=== PATIENT | male | born 1980 | race African-American/Black ===

== ENCOUNTER 2023-05-19 12:03 | Inpatient (IN) | payer SELFPAY ==
[2023-05-19 13:17] LABS: Absolute Lymphocytes (CBC) 2.3 K/uL (0.7-4.9); Lymphocytes % 43.9 % (15.3-44.8); MCV 91.6 fL (80-100); MPV 7.8 fL (7.6-11.3); Platelets 321 thou/uL (152-406); RBC Red Blood Cell Count 4.59 M/uL (4.33-5.43)
[2023-05-19 13:28] LABS: Protime INR 1.11
[2023-05-19] MEDS ORDERED: THIAMINE 200 MG/2 ML INJ ONE (13:42)
[2023-05-19] MEDS ORDERED: NA CHLORIDE 0.9% 1,000 ML ONE (13:43)
[2023-05-19 13:50] LABS: AST/SGOT 10 U/L (15-37); Alkaline Phosphatase 74 U/L (45-117); Glomerular Filtration Rate 88 ml/min (=/>90); Potassium 4.4 mEq/L (3.5-5.1); Protein, Total 7.1 g/dL (6.4-8.2); Sodium Level 139 mEq/L (136-145)
[2023-05-19 13:52] LABS: Troponin High Sensitivity 104.8 pg/mL (<58.9)
[2023-05-19 13:53] LABS: Specific Gravity 1.013 (1.005-1.030); Urine Bacteria None Seen /HPF (<20); Urine Bilirubin NEGATIVE (Negative); Urine Blood Negative (Negative); Urine Clarity Clear (Clear); Urine Color Light-Yellow (Yellow); Urine Glucose NEGATIVE (Negative); Urine Protein NEGATIVE (Negative); Urine RBC None Seen /HPF (None Seen); Urine Urobilinogen Normal (Normal)
[2023-05-19 13:55] LABS: ALT/SGPT 12 U/L (16-61); Albumin 3.3 g/dL (3.4-5.0); BUN Blood Urea Nitrogen 12 mg/dL (7-18); Bicarbonate 28 mEq/L (21-32); Bilirubin Direct 0.1 mg/dL (0-0.2); Bilirubin Indirect, Calculated 0.2 mg/dL (0.2-0.8); Bilirubin Total 0.3 mg/dL (0.2-1.0); Glucose Level 81 mg/dL (74-106); Lipase 78 U/L (13-75)
--- NOTE | 2023-05-19 13:55 | ER ---
Nurse's Notes [facility] Name: Nishi Haro Age: 43 yrs Sex: Male : 1980 Arrival Date: 05/19/2023 Time: 12:03 Bed 8 Private MD: Diagnosis: Weakness;Dizziness and giddiness;Bradycardia, unspecified;Abnormal levels of other serum enzymes-ELEVATED TROPONIN Presentation: 05/19 12:23 Chief complaint: Patient states: has been at [facility] for rehab, last used meth over iw a week ago , has been feeling light headed , fatigued, shaky, weak. They don't feed us in there, I'm not getting nourishment. Coronavirus screen: At this time, the client does not indicate any symptoms associated with coronavirus-19. Ebola Screen: Patient negative for fever greater than or equal to 101.5 degrees Fahrenheit, and additional compatible Ebola Virus Disease symptoms Patient denies exposure to infectious person. Patient denies travel to an Ebola-affected area in the 21 days before illness onset. No symptoms or risks identified at this time. 12:23 Method Of Arrival: Ambulatory iw 12:23 Acuity: PARDEEP 3 iw 14:16 Initial Sepsis Screen: Does the patient meet any 2 criteria? No. Patient's initial iw sepsis screen is negative. Does the patient have a suspected source of infection? No. Patient's initial sepsis screen is negative. Risk Assessment: Do you want to hurt yourself or someone else? Patient reports no desire to harm self or others. Onset of symptoms was May 19, 2023. Historical: - Allergies: 12:26 No Known Allergies; iw - Home Meds: 12:26 None [Active]; iw - PMHx: 12:26 None; iw - PSHx: 12:26 None; iw - Immunization history:: Adult Immunizations up to date. - Social history:: Patient uses street drugs, Methamphetamine (Meth). - Family history:: not pertinent. Screenin:38 [facility] ED Fall Risk Assessment (Adult) Score/Fall Risk Level 0 - 2 = Low Risk. Abuse iw screen: Denies threats or abuse. Denies injuries from another. Nutritional screening: No deficits noted. Tuberculosis screening: No symptoms or risk factors identified. Assessment: 12:37 General: Appears in no apparent distress. Behavior is calm, cooperative. Neuro: Level iw of Consciousness is awake, alert, obeys commands. Cardiovascular: Patient's skin is warm and dry. Respiratory: Airway is patent Respiratory effort is even, unlabored, Respiratory pattern is regular, symmetrical. GI: Abdomen is flat, non-distended. Derm: Skin is intact, is healthy with good turgor. Musculoskeletal: Range of motion: intact in all extremities. 15:01 Reassessment: No changes from previously documented assessment. Patient and/or family tl4 updated on plan of care and expected duration. Pain level reassessed. Patient is alert, oriented x 3, equal unlabored respirations, skin warm/dry/pink. Patient denies pain at this time. Pain: Denies pain. 19:26 Reassessment: Patient appears in no apparent distress at this time. Patient and/or km8 family updated on plan of care and expected duration. Pain level reassessed. pt been on phone at nurses station since start of shift at 1900;. 05/21 07:30 Reassessment: Patient appears in no apparent distress at this time. Patient and/or db family updated on plan of care and expected duration. Pain level reassessed. Patient is alert, oriented x 3, equal unlabored respirations, skin warm/dry/pink. SEE [employer] FOR CONTINUED DOCUMENTATION. General: Appears in no apparent distress. comfortable, Behavior is calm, cooperative. Neuro: Level of Consciousness is awake, alert, obeys commands, Oriented to person, place, time, situation. Vital Signs: 05/19 12:26 BP 130 / 77; Pulse 64; Resp 16; Temp 98.1; Pulse Ox 100% on R/A; iw 15:02 BP 133 / 77; Pulse 69; Resp 17; Pulse Ox 99% on R/A; tl4 05/21 07:30 BP 116 / 74; Pulse 68; Resp 16; Temp 98; Pulse Ox 98% ; db ED Course: 05/19 12:04 Patient arrived in ED. aa5 12:14 Ramana Boyer MD is Attending Physician. nohemi 12:25 Triage completed. iw 12:37 Nuris Burton, RN is Primary Nurse. iw 12:38 Patient has correct armband on for positive identification. iw 12:40 Inserted saline lock: 20 gauge in right antecubital area, using aseptic technique. iw 13:03 Provided Education on: . 13:09 Initial lab(s) drawn, by ok, sent to lab. 5 14:08 Girma Ortiz MD is Hospitalizing Provider. [facility] 14:36 Chest Single View XRAY In Process Unspecified. EDMS 14:58 DD Sent. tl4 14:58 BNP Sent. tl4 15:02 Diet: Patient given a regular meal tray. Tolerated well given supplemental peanut tl4 butter and jelly sandwich and milk.. 15:03 Arm band placed on Patient placed in an exam room, on a stretcher. tl4 15:03 No provider procedures requiring assistance completed. tl4 20:00 Patient admitted, IV remains in place. [facility] 05/20 20:47 Primary Nurse role handed off by Nuris Burton RN [facility] 20:47 Dina Andrade, SANDY is Primary Nurse. 8 Administered Medications: 05/19 13:26 Drug: Banana Bag - (Multivitamin IV 1 amp, NS 0.9% IV 1000 ml, Thiamine IV 100 mg, iw foLIC Acid IVPB 1 mg) IV at 500 ml/hr once Route: IV; Rate: 500 ml/hr; Site: right antecubital; 13:52 Drug: NS 0.9% IV 1000 ml IV at 1 bolus Per protocol; 1000 mL bolus Route: IV; Rate: 1 iw bolus; Site: right antecubital; 13:52 Drug: Thiamine IV 100 mg IV at bolus once Route: IV; Rate: bolus; Site: right iw antecubital; 14:27 Drug: Aspirin PO Chewable Tablet 324 mg PO once; 81 mg tablets x 4 Route: PO; tl4 14:46 Follow up: Response: No adverse reaction tl4 Medication: 12:38 VIS not applicable for this client. Outcome: 13:54 Discharge ordered by . [facility] 14:09 Decision to Hospitalize by Provider. [facility] 20:00 Admitted to ER Hold. Please see [facility] for further documentation. km8 20:00 Condition: good km8 20:00 Instructed on the need for admit, Demonstrated understanding of instructions, 05/21 15:25 Patient left the ED. db Signatures: Dispatcher [employer] Ramana Roger MD MD cha Williams, Irene, SANDY DELGADO Claudine Brennan RN SANDY Saundra Sanchez RN RN db [place], Mor[facility] Dina Andrade, RN RN km8 Aden Scott RN RN tl4 Corrections: (The following items were deleted from the chart) 05/19 14:17 12:23 Chief complaint: Patient states: has been at [facility] for rehab, last used iw meth over a week ago , has been feeling light headed , fatigued, shaky, weak. They don't fees us in there, I'm not getting nourishment iw 05/21 07:43 07:30 Reassessment: Patient appears in no apparent distress at this time. Patient db and/or family updated on plan of care and expected duration. Pain level reassessed. Patient is alert, oriented x 3, equal unlabored respirations, skin warm/dry/pink. db
--- NOTE | 2023-05-19 13:55 | EDPHYS ---
Physician Documentation [facility] Name: Nishi Haro Age: 43 yrs Sex: Male : 1980 Arrival Date: 05/19/2023 Time: 12:03 Bed 8 Private MD: ED Physician Ramana Boyer HPI: 05/19 13:41 This 43 yrs old Black Male presents to ER via Ambulatory with complaints of Drug nohemi withdraw. 13:41 in rehab, feels weak. Onset: The symptoms/episode began/occurred 3 day(s) ago. Severity nohemi of symptoms: At their worst the symptoms were mild in the emergency department the symptoms are unchanged. The patient has experienced similar episodes in the past, several times. Historical: - Allergies: 12:26 No Known Allergies; iw - Home Meds: 12:26 None [Active]; iw - PMHx: 12:26 None; iw - PSHx: 12:26 None; iw - Immunization history:: Adult Immunizations up to date. - Social history:: Patient uses street drugs, Methamphetamine (Meth). - Family history:: not pertinent. ROS: 13:41 Constitutional: Negative for fever, chills, and weight loss, Eyes: Negative for injury, nohemi pain, redness, and discharge, ENT: Negative for injury, pain, and discharge, Neck: Negative for injury, pain, and swelling, Cardiovascular: Negative for chest pain, palpitations, and edema, Respiratory: Negative for shortness of breath, cough, wheezing, and pleuritic chest pain, Abdomen/GI: Negative for abdominal pain, nausea, vomiting, diarrhea, and constipation, Back: Negative for injury and pain, : Negative for injury, bleeding, discharge, and swelling, MS/Extremity: Negative for injury and deformity, Skin: Negative for injury, rash, and discoloration, Psych: Negative for depression, anxiety, suicide ideation, homicidal ideation, and hallucinations, Allergy/Immunology: Negative for hives, rash, and allergies, Endocrine: Negative for neck swelling, polydipsia, polyuria, polyphagia, and marked weight changes, Hematologic/Lymphatic: Negative for swollen nodes, abnormal bleeding, and unusual bruising, 13:41 Neuro: Positive for weakness, Exam: 13:41 Constitutional: This is a well developed, well nourished patient who is awake, alert, nohemi and in no acute distress. Head/Face: Normocephalic, atraumatic. Eyes: Pupils equal round and reactive to light, extra-ocular motions intact. Lids and lashes normal. Conjunctiva and sclera are non-icteric and not injected. Cornea within normal limits. Periorbital areas with no swelling, redness, or edema. ENT: Nares patent. No nasal discharge, no septal abnormalities noted. Tympanic membranes are normal and external auditory canals are clear. Oropharynx with no redness, swelling, or masses, exudates, or evidence of obstruction, uvula midline. Mucous membranes moist. Neck: Trachea midline, no thyromegaly or masses palpated, and no cervical lymphadenopathy. Supple, full range of motion without nuchal rigidity, or vertebral point tenderness. No Meningismus. Chest/axilla: Normal chest wall appearance and motion. Nontender with no deformity. No lesions are appreciated. Cardiovascular: Regular rate and rhythm with a normal S1 and S2. No gallops, murmurs, or rubs. Normal PMI, no JVD. No pulse deficits. Respiratory: Lungs have equal breath sounds bilaterally, clear to auscultation and percussion. No rales, rhonchi or wheezes noted. No increased work of breathing, no retractions or nasal flaring. Abdomen/GI: Soft, non-tender, with normal bowel sounds. No distension or tympany. No guarding or rebound. No evidence of tenderness throughout. Back: No spinal tenderness. No costovertebral tenderness. Full range of motion. Male : Normal genitalia with no discharge or lesions. Skin: Warm, dry with normal turgor. Normal color with no rashes, no lesions, and no evidence of cellulitis. MS/ Extremity: Pulses equal, no cyanosis. Neurovascular intact. Full, normal range of motion. Psych: Awake, alert, with orientation to person, place and time. Behavior, mood, and affect are within normal limits. 13:41 Neuro: Orientation: is normal, appropriate for stated age, no acute changes, Mentation: is normal, appropriate for stated age, no acute changes, Memory: is normal, appropriate for stated age, no acute changes, Cranial nerves: grossly normal, is grossly normal based on the patient's age, no acute changes, Cerebellar function: is grossly normal, is grossly normal based on the patient's age, no acute changes, Motor: is normal, is grossly normal based on the patient's age, no acute changes, moves all fours, strength is normal, strength is 5/5 in all extremities, Sensation: is normal, no obvious gross deficits, appropriate no acute changes, Gait: not applicable is steady, at a normal pace, without difficulty, Deep tendon reflexes are 2+ (normal) in the bilateral brachioradialis, bicep, tricep and patellar and Achilles tendons, Babinski testing is normal, seizure activity, is not displayed by the patient, 13:56 ECG was reviewed by the Attending Physician. [facility] Vital Signs: 12:26 BP 130 / 77; Pulse 64; Resp 16; Temp 98.1; Pulse Ox 100% on R/A; iw 15:02 BP 133 / 77; Pulse 69; Resp 17; Pulse Ox 99% on R/A; tl4 05/21 07:30 BP 116 / 74; Pulse 68; Resp 16; Temp 98; Pulse Ox 98% ; db MDM: 05/19 12:14 Patient medically screened. [facility] 13:45 Differential Diagnosis altered mental status. Data reviewed: vital signs, nurses notes, [facility] lab test result(s), EKG. Consideration of Admission/Observation Escalation of care including admission/observation considered. I considered the following discharge prescriptions or medication management in the emergency department Medications were administered in the Emergency Department. See MAR. Independent interpretation of the following test(s) in the Emergency Department EKG: See my EKG interpretation above. Test considered but Not performed: CT: no ct head. Care significantly affected by the following chronic conditions: none, drugs, 3 time in REHAB. Counseling: I had a detailed discussion with the patient and/or guardian regarding the historical points, exam findings, and any diagnostic results supporting the discharge/admit diagnosis, lab results, the need for outpatient follow up, for definitive care, a family practitioner. 05/19 12:15 Order name: Acetaminophen; Complete Time: 14:25 [facility] 05/19 12:15 Order name: Basic Metabolic Panel; Complete Time: 14:25 [facility] 05/19 12:15 Order name: CBC with Diff; Complete Time: 13:29 [facility] 05/19 12:15 Order name: ETOH Level; Complete Time: 13:40 [facility] 05/19 12:15 Order name: Hepatic Function; Complete Time: 14:25 [facility] 05/19 12:15 Order name: PT-INR; Complete Time: 13:29 [facility] 05/19 12:15 Order name: Ptt, Activated; Complete Time: 13:29 nohemi 05/19 12:15 Order name: Salicylate; Complete Time: 13:56 [facility] 05/19 12:15 Order name: Urinalysis w/ reflexes; Complete Time: 13:56 nohemi 05/19 12:15 Order name: Urine Drug Screen; Complete Time: 14:25 [facility] 05/19 12:15 Order name: Lipase; Complete Time: 14:25 [facility] 05/19 12:15 Order name: Troponin High Sensitivity; Complete Time: 14:25 [facility] 05/19 13:54 Order name: BNP [facility] 05/19 14:37 Order name: DD aa5 05/19 22:38 Order name: Creatine Phosphokinase EDMN 05/19 22:38 Order name: Troponin High Sensitivity EDMN 05/20 08:25 Order name: CBC with Automated Diff EDMS 05/20 08:43 Order name: Basic Metabolic Panel EDMN 05/20 08:43 Order name: Lipid Profile EDMN 05/20 08:47 Order name: Troponin High Sensitivity EDMN 05/20 12:48 Order name: Troponin High Sensitivity EDMS 05/21 04:43 Order name: CBC with Automated Diff EDMS 05/21 05:00 Order name: Basic Metabolic Panel EDMN 05/21 05:00 Order name: Troponin High Sensitivity [facility] 05/19 13:54 Order name: Chest Single View XRAY; Complete Time: 14:48 [facility] 05/19 12:15 Order name: EKG; Complete Time: 12:16 [facility] 05/19 12:15 Order name: EKG - Nurse/Tech; Complete Time: 12:39 [facility] 05/19 12:15 Order name: IV Saline Lock; Complete Time: 13:09 [facility] 05/19 12:15 Order name: Labs collected and sent; Complete Time: 13:09 [facility] EC:56 Rate is 51 beats/min. Rhythm is regular. QRS [place] is Normal. AL interval is normal. QRS nohemi interval is normal. QT interval is normal. No Q waves. T waves are Normal. No ST changes noted. Clinical impression: Sinus bradycardia and No evidence of ischemia. Interpreted by me. Reviewed by me. Administered Medications: 13:26 Drug: Banana Bag - (Multivitamin IV 1 amp, NS 0.9% IV 1000 ml, Thiamine IV 100 mg, iw foLIC Acid IVPB 1 mg) IV at 500 ml/hr once Route: IV; Rate: 500 ml/hr; Site: right antecubital; 13:52 Drug: NS 0.9% IV 1000 ml IV at 1 bolus Per protocol; 1000 mL bolus Route: IV; Rate: 1 iw bolus; Site: right antecubital; 13:52 Drug: Thiamine IV 100 mg IV at bolus once Route: IV; Rate: bolus; Site: right iw antecubital; 14:27 Drug: Aspirin PO Chewable Tablet 324 mg PO once; 81 mg tablets x 4 Route: PO; tl4 14:46 Follow up: Response: No adverse reaction tl4 Disposition Summary: 05/19/23 14:09 Hospitalization Ordered Notes: Hospitalization Status: Observation nohemi Provider: Girma Ortiz cha Condition: Fair(05/19/23 14:09) nohemi Problem: new(05/19/23 14:09) nohemi Symptoms: have improved(05/19/23 14:09) nohemi Bed/Room Type: Standard nohemi Location: Telemetry/MedSurg (observation)(05/21/23 15:17) bd Room Assignment: 406(05/21/23 15:19) bd Diagnosis - Weakness(05/19/23 14:09) nohemi - Dizziness and giddiness nohemi - Bradycardia, unspecified nohemi - Abnormal levels of other serum enzymes - ELEVATED TROPONIN nohemi Forms: - Medication Reconciliation Form nohemi - SBAR form nohemi - Leadership Thank You Letter nohemi Signatures: Dispatcher [employer] EDMS Reanna Jackson Corey, MD MD cha Williams, Irene RN SANDY iw Matt John, GARMENT FORM ASSEMBLER-C GARMENT FORM ASSEMBLER-Cla1 Christy Kelsey RN RN Celio Girard RN RN ja1 Lauryn Gray Lynsay, RN RN ll1 Aden Scott RN RN tl4 Corrections: (The following items were deleted from the chart) 13:55 13:54 Home nohemi nohemi 13:55 13:54 new nohemi nohemi 13:55 13:54 have improved nohemi nohemi 13:55 13:54 Stable nohemi nohemi 13:55 13:54 Weakness nohemi nohemi 13:55 13:54 Abuse of other non-psychoactive substances nohemi nohemi 15:50 14:09 Telemetry/MedSurg (observation) nohemi hb 15:50 14:09 nohemi hb 23:17 12:15 Suicide Screening ([place]) ordered. nohemi jb4 05/20 10:41 02 15:50 [facility] ER HOLD hb eb 05/20 10:41 0217 15:50 ERHOLD- hb eb 05/20 10:47 10:41 Telemetry/MedSurg (observation) eb eb 10:47 10:41 412 eb eb 05/21 11:26 02 10:47 [facility] ER HOLD eb ja1 05/21 11:26 0218 10:47 ERHOLD- eb ja1 05/21 13:59 11:26 Telemetry/MedSurg (observation) ja1 ll1 13:59 11:26 405 ja1 ll1 15:17 13:59 [facility] ER HOLD ll1 bd 15:17 13:59 ERHOLD- ll1 bd 15:19 15:17 405 bd bd
[2023-05-19 14:06] LABS: Barbiturates NEGATIVE (NEGATIVE); Benzodiazepines NEGATIVE (NEGATIVE); Cocaine NEGATIVE (NEGATIVE); METHAMPHETAM POSITIVE (NEGATIVE); Methadone NEGATIVE (NEGATIVE); Opiates NEGATIVE (NEGATIVE); Phencyclidine NEGATIVE (NEGATIVE); THC Cannibis NEGATIVE (NEGATIVE)
[2023-05-19] MEDS ORDERED: ASPIRIN 81 MG CHEWABLE TABLET ONE (14:22)
--- NOTE | 2023-05-19 14:40 | RAD REPORT ---
EXAM DESCRIPTION: RAD - Chest Single View - 05/19/2023 2:34 pm CLINICAL HISTORY: CHEST PAIN COMPARISON: No comparisons FINDINGS: Lines: None. Lungs: No evidence of edema or pneumonia. Pleural: No significant pleural effusions or pneumothorax. Cardiac: The heart size is within normal limits. Mediastinum: Within normal limits. Bones: No acute fractures. Other: None IMPRESSION: No acute cardiopulmonary disease.
--- NOTE | 2023-05-19 15:08 | P.HP ---
Certification for Inpatient Patient admitted to: Observation With expected LOS: <2 Midnights Patient will require the following post-hospital care: None Practitioner: I am a practitioner with admitting privileges, knowledge of patient current condition, hospital course, and medical plan of care. Services: Services provided to patient in accordance with Admission requirements found in Title 42 Section 412.3 of the Code of Federal Regulations Patient History Date of Service: 05/19/23 Reason for admission: Chest pain History of Present Illness: 43-year-old male with history of substance abuse presents emergency department chief complaint of generalized weakness, lightheadedness. He is currently at a rehab facility for methamphetamine use, he reports he last used methamphetamines approximate 3 to 4 days ago and has been feeling unwell while in rehab. He denies any other medical history. He was evaluated in the emergency department his labs are significant for initial hesitancy troponin of 104.8 UDS positive for amphetamines. Patient does admit to some cramping sensation in his left chest wall intermittently the past few days as well as some intermittent shortness of breath the past few weeks with exertion. D-dimer ordered and pending. ED prior wishes to admit under observation for ACS rule out - Past Medical/Surgical History -: Substance abuse -: None Psychosocial/ Personal History: Currently staying at [facility] rehab facility - Family History Family History: Reviewed- Non-Contributory - Social History Smoking Status: Current every day smoker Alcohol use: No CD- Drugs: Yes Caffeine use: Yes Place of Residence: Home Review of Systems 10-point ROS is otherwise unremarkable Respiratory: Shortness of Breath Cardiovascular: Chest Pain Physical Examination - Physical Exam General: Alert, In no apparent distress, Oriented x3 HEENT: Atraumatic, PERRLA, Mucous membr. moist/pink Neck: Supple, 2+ carotid pulse no bruit, No LAD Respiratory: Clear to auscultation bilaterally, Normal air movement Cardiovascular: Regular rate/rhythm, Normal S1 S2 Gastrointestinal: Normal bowel sounds, No tenderness Musculoskeletal: No tenderness Integumentary: No rashes Neurological: Normal speech, Normal strength at 5/5 x4 extr, Normal tone, Normal affect - Studies Laboratory Data (last 24 hrs) 05/19/23 05/19/23 05/19/23 13:06 13:06 13:06 WBC 5.30 Hgb 14.4 Hct 42.0 Plt Count 321 PT 12.2 INR 1.11 APTT 37.2 H Sodium 139 Potassium 4.4 BUN 12 Creatinine 1.07 Glucose 81 Total Bilirubin 0.3 AST 10 L ALT 12 L Alkaline Phosphatase 74 Lipase 78 H Assessment and Plan - Plan Assessment: Chest pain with elevated troponin Amphetamine use disorder Plan: Chest pain with elevated troponin Mildly elevated troponin, will trend and monitor on tele Cardiology consult, daily aspirin Will obtain D-dimer Troponin elevation possibly secondary to amphetamine use Amphetamine use disorder Counseled on need for cessation Plans on quitting, currently residing at rehab facility Last used 3 to 4 days ago DVT PPX: Lovenox Code status: Full Discharge Plan: Home Plan to discharge in: 24 Hours - Advance Directives Does patient have a Living Will: No Does patient have a Durable POA for Healthcare: No - Code Status/Comfort Care Code Status Assessed: Yes (Full code) Critical Care: No Time Spent Managing Pts Care (In Minutes): 55
[2023-05-19] MEDS: FOLIC ACID 1 MG, MULTIVITAMINS INJ 10 ML, THIAMINE HCL 100 MG in NA CHLORIDE 0.9% 1,000 ML IV ONE (19:00)
[2023-05-19] MEDS ORDERED: ONDANSETRON 4 MG/2 ML VIAL IV PRN (21:13)
[2023-05-19 21:46] VITALS: BMI 23.4
[2023-05-19 22:38] LABS: Troponin High Sensitivity 83.4 pg/mL (<58.9)
[2023-05-20 08:21] LABS: Absolute Lymphocytes (CBC) 2.2 K/uL (0.7-4.9); Hematocrit 41.5 % (39.6-49.0); MCV 91.4 fL (80-100); MPV 7.8 fL (7.6-11.3); Platelets 302 thou/uL (152-406); RBC Red Blood Cell Count 4.54 M/uL (4.33-5.43)
[2023-05-20] MEDS ORDERED: ENOXAPARIN 40 MG/0.4 ML SQ ONE (08:25)
[2023-05-20] MEDS ORDERED: ASPIRIN 81 MG CHEWABLE TABLET ONE (08:25)
[2023-05-20 08:33] LABS: Potassium 4.2 mEq/L (3.5-5.1)
[2023-05-20] MEDS: ENOXAPARIN 40 MG/0.4 ML SQ SCH (09:00)
[2023-05-20] MEDS: ASPIRIN EC 81 MG TAB PO SCH (09:00)
--- NOTE | 2023-05-20 14:37 | P.PN ---
Date of Service: 05/20/23 Subjective: Still having intermittent chest pain Troponin persistently elevated ROS: 10 point ROS as noted above, otherwise negative Physical exam GEN: Alert, oriented, NAD HEENT: Normal conjunctiva, sclera anicteric CV: Regular rate and rhythm, no edema Pulm: Nonlabored respirations on room air ABD: Soft, nontender, nondistended MSK: No joint tenderness Integumentary: No rashes Neuro: Normal speech, normal affect Vitals reviewed Assessment: Chest pain with elevated troponin Amphetamine use disorder Plan: Chest pain with elevated troponin Troponin persistently elevated around 100 Reports management chest pain overnight Cardiology consult, daily aspirin D-dimer negative Appreciate further input from cardiology Amphetamine use disorder Counseled on need for cessation Plans on quitting, currently residing at rehab facility Last used 3 to 4 days ago DVT PPX: Lovenox Code status: Full Discharge Plan: Home Plan to discharge in: 24 Hours Time Spent Managing Pts Care (In Minutes): 35
[2023-05-20] MEDS ORDERED: ZOLPIDEM TARTRATE 5 MG TABLET ONE (20:24)
[2023-05-20] MEDS: ZOLPIDEM TARTRATE 5 MG TABLET PO ONE (20:33)
[2023-05-21 04:38] LABS: Absolute Lymphocytes (CBC) 2.6 K/uL (0.7-4.9); Hematocrit 43.4 % (39.6-49.0); Lymphocytes % 35.6 % (15.3-44.8); MCV 90.1 fL (80-100); MPV 8.1 fL (7.6-11.3); Platelets 334 thou/uL (152-406); RBC Red Blood Cell Count 4.81 M/uL (4.33-5.43)
[2023-05-21 04:52] LABS: Potassium 4.1 mEq/L (3.5-5.1)
--- NOTE | 2023-05-21 11:00 | EKG ---
Test Date: 2023-05-19 Test Time: 12:36:40 Policy Advisor: ABDOUL MEASUREMENT RESULTS: Intervals: Rate: 51 CA: 178 QRSD: 94 QT: 424 QTc: 390 [place]: P: 67 CA: 178 QRS: 79 T: 73 INTERPRETIVE STATEMENTS: Sinus bradycardia Otherwise normal ECG No previous ECG available for comparison Electronically Signed On 05-21-23 10:57:20 BENDER HAND by Gabino Abreu
[2023-05-21] MEDS ORDERED: REGADENOSON 0.4 MG/5 ML SYR IV ONE (13:07)
--- NOTE | 2023-05-21 16:44 | RAD REPORT ---
EXAM DESCRIPTION: NM - Rest Stress Cardiac Imaging - 05/21/2023 1:35 pm CLINICAL HISTORY: elevated troponin COMPARISON: Chest Single View dated 05/19/2023 TECHNIQUE: The patient was administered approximately 11 mCi of Tc 99m Sestamibi prior to resting SP ECT imaging of the heart. The patient was then administered approximately 31.2 mCi of Tc 99m Sestamib i following exercise or pharmacologic stress. Multiplanar SPECT images were reviewed. FINDINGS: No stress induced ischemic defect is seen to suggest stress induced ischemia. Fixed defect along the inferior wall the mid to basal segments, extending along the adjacent septal in the basal segment. Hwop-ha-paudxhwn uptake attenuation along the anterior wall at the apical to mid segments, m ore pronounced on the rest compared to the stress images. Some of these findings could be artifactual , related to pronounced splanchnic uptake most notable on the rest images. The end diastolic volume is 126 ml, the end systolic volume is 60 ml, and the ejection fraction is 52 %. IMPRESSION: No evidence of stress induced ischemia. Fixed defects along the inferior wall and xhrg-zt-jryqghxm uptake attenuation along the anterior wall , findings which could be artifactual. The inferior wall findings may represent a region of prior inf arct. Left ventricular ejection fraction is near the lower limit of normal, 52%.
--- NOTE | 2023-05-21 17:45 | P.PN ---
Date of Service: 05/21/23 Subjective: Feeling better today No further chest pain ROS: 10 point ROS as noted above, otherwise negative Physical exam GEN: Alert, oriented, NAD HEENT: Normal conjunctiva, sclera anicteric CV: Regular rate and rhythm, no edema Pulm: Nonlabored respirations on room air ABD: Soft, nontender, nondistended MSK: No joint tenderness Integumentary: No rashes Neuro: Normal speech, normal affect Vitals reviewed Assessment: Chest pain with elevated troponin Amphetamine use disorder Hyperlipidemia Plan: Chest pain with elevated troponin Troponin persistently elevated around 100-improved Cardiology consult, daily aspirin Stress test returned no stress-induced ischemia Cleared for discharge and outpatient follow-up from cardiology Arranging for return back to [facility] Hyperlipidemia Statin at discharge Amphetamine use disorder Counseled on need for cessation Plans on quitting, currently residing at rehab facility Last used 3 to 4 days ago DVT PPX: Lovenox Code status: Full Discharge Plan: Home Plan to discharge in: 24 Hours Time Spent Managing Pts Care (In Minutes): 35
[2023-05-21] MEDS: ATORVASTATIN 40 MG TAB PO SCH (19:57)
[2023-05-21] MEDS: ZOLPIDEM TARTRATE 5 MG TABLET PO PRN (20:29)
--- NOTE | 2023-05-22 03:21 | CON ---
Date of Consultation: 05/21/2023 Reason For Consultation: Elevated troponin. History Of Present Illness: A 43-year-old male with multiple drug and substance abuse, used cocaine and methamphetamine, came in with generalized weakness, lightheadedness. Denied having any chest jeremi n. With careful questioning, he said he never had chest pain, just felt weak, and tried to come in [facility] for detox. No active symptoms at the present time. Past Medical History: None. Medications: None. Allergies: NO KNOWN DRUG ALLERGIES. Family History: No mention of coronary artery disease or cancer. Social History: Active smoker and uses methamphetamine and cocaine. Review of Systems: All systems reviewed, they are negative except mentioned in HPI. Physical Examination: Vital Signs: Reviewed. Head and Neck: Pupils are equal, reactive to light. Intact eye movements. No JVD. No cervical lym phadenopathy. Neck is supple. Thyroid is not enlarged. Lungs: Clear to auscultation bilaterally. No rhonchi, wheezing, or crackles. No accessory muscle u se. Heart: Regular rate and rhythm. No extra sounds. Abdomen: Soft, nontender. Bowel sounds positive. No organomegaly. No masses or hernia. No rigidi ty or rebound. Extremities: No edema, clubbing, or cyanosis. Intact pulses. Skin: No rash. Neuro: Alert, awake, oriented x3. No acute focal deficits appreciated. Investigations: Cardiac enzymes, troponin 83, 103, 111, 94, BUN 17, creatinine 0.05, and hemoglobin is 14.8. Assessment/recommendation: Elevated troponin. No chest pain, likely drug related. Obtain a stress test and an echo to further evaluate and start baby aspirin. The patient was counseled against drug use in details. SR/MODL Voice ID: [id number] Report ID: [id number]
--- NOTE | 2023-05-22 07:12 | TREADPHA ---
DX: CHEST PAIN Date of Study: 05/21/2023 Ht: 6' 0 " Wt: 173 lb 0 oz Consulting Physician: DHIRAJ MEDICATIONS: ASPIRIN, LOVENOX, ZOFRAN HISTORY: SMOKER, FORMER ETHYL ALCOHOL, METHAMPTAMINE LAST WEEKEND. PHYSICIAL EXAMINATION: RESTING B.P.: 112/53 RESTING H.R.: 53 RESTING EKG: SINUS RYTHM PROTOCOL: LEXISCAN EXERCISE TIME: 3:30 B.P. AT PEAK STRESS: 116/71 IMPRESSION: LEXISCAN INJECTED. CARDIOLITE INJECTED. SEE NUCLEAR MEDICINE REPORT. NO CHEST PAIN. NO ARRHYTHMIA. NO VENTRICULAR TACHYCARDIA. NO SUPRAVENTRICULAR TACHYCARDIA. NO EKG CHANGES OF ISCHEMIA WITH LEXISCAN.
--- NOTE | 2023-05-22 18:43 | P.PN ---
Date of Service: 05/22/23 Subjective: Feeling well this AM On the Phone and waiting for Psych evaluation will likely discharge in the AM ROS: 10 point ROS as noted above, otherwise negative Physical exam GEN: AAO x3, NAD, calm and cooperative HEENT: Normal conjunctiva, sclera anicteric CV: RRR, no edema, S1 S2 present, no murmur noted Pulm: Nonlabored respirations on room air ABD: Soft, nontender, nondistended, normoactive bowel sounds MSK: No joint tenderness Integumentary: No rashes Neuro: Normal speech, normal affect, calm and cooperative Vitals reviewed Assessment: Chest pain with elevated troponin Amphetamine use disorder Hyperlipidemia Plan: Chest pain with elevated troponin Troponin persistently elevated around 100-improved Cardiology consult, daily aspirin Stress test returned no stress-induced ischemia Cleared for discharge and outpatient follow-up from cardiology [facility] Hyperlipidemia Statin at discharge Amphetamine use disorder Counseled on need for cessation Plans on quitting, currently residing at rehab facility Last used 3 to 4 days ago Psych evaluation per rehab facility DVT PPX: Lovenox Code status: Full Discharge Plan: Home or rehab facility Plan to discharge in: 24 Hours
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
--- NOTE | 2023-05-23 19:00 | P.PN ---
Date of Service: 05/23/23 Subjective: Calm and cooperative this AM positive about his plans to move forward and improve his life ROS: 10 point ROS as noted above, otherwise negative Physical exam GEN: AAO x3, NAD, calm and cooperative HEENT: Normal conjunctiva, sclera anicteric CV: RRR, no edema, S1 S2 present, no murmur noted Pulm: Nonlabored respirations on room air, symmetrical chest wall movement ABD: Soft, nontender, nondistended on palpation, positive bowel sounds MSK: No joint tenderness Integumentary: No rashes Neuro: Normal speech, normal affect, calm and cooperative Vitals reviewed Assessment: Chest pain with elevated troponin Amphetamine use disorder Hyperlipidemia Plan: Chest pain with elevated troponin Troponin persistently elevated around 100-improved Cardiology consult, daily aspirin Stress test returned no stress-induced ischemia Cleared for discharge and outpatient follow-up from cardiology Arranging for return back to [facility] rehab Hyperlipidemia Statin at discharge Amphetamine use disorder Counseled on need for cessation Plans on quitting, currently residing at rehab facility Last used 3 to 4 days ago Psych evaluation per rehab facility DVT PPX: Lovenox Code status: Full Discharge Plan: rehab in the morning Plan to discharge in: 24 Hours
[2023-05-24 04:37] VITALS: O2SAT 96
[2023-05-24 05:15] VITALS: BP 130/58; TEMP 97
== END 2023-05-24 08:35 | DRG 313 ==
LOC: ER 12:03 → ERHOLD 14:59 → OBSVTOIN 05-20 14:35 → ERHOLD 05-21 09:07 → 4TH 05-21 13:07
PROVIDERS: ADMIT Hospitalist; ATTEND Internal Medicine
DX: R07.89 Other chest pain (principal); E78.5 Hyperlipidemia, unspecified; F15.180 Other stimulant abuse with stimulant-induced anxiety disorder; F17.200 Nicotine dependence, unspecified, uncomplicated; T43.625A Adverse effect of amphetamines, initial encounter; R79.89 Other specified abnormal findings of blood chemistry; Z56.0 Unemployment, unspecified; Z71.41 Alcohol abuse counseling and surveillance of alcoholic
CPT/HCPCS: 36415; 71045; 78452; 80048; 80061; 80076; 80143; 80179; 80307; 81001; 82077; 82550; 83690; 83880; 84484; 85025; 85379; 85610; 85730; 93005; 93017; 96374; 96375; 99285; A9500; G0378; J1650; J2785; J3411; J7030